=== PATIENT | female | born 1960 | race Caucasian/White ===

== ENCOUNTER 2024-12-05 10:17 | Outpatient (AMB) | payer MEDICARE, OTHER, SELFPAY ==
--- NOTE | 2024-12-05 10:23 | A.OFFPC_ITS ---
Vital Signs 12/05/24 10:32 Height 5 ft 4 in Weight 152 lb 4 oz BMI 26.1 BP 127/80 Blood Pressure Location Lt brachial Position Sitting Respiration 16 Pulse 76 Pulse Source Pulse Oximeter Temp 97.5 F Temp Source Oral Pulse Oximetry (%) 100 Oxygen Delivery Method Room Air Intake Visit Reasons: high blood pressure Intake Note: patient here for new patient visit/ HTN Transmission Specialist Required: No Is last menstrual period known: No Post menopausal: No Patient : No Allergies nitrofurantoin (From Macrobid) Allergy (Intermediate, Verified 12/05/24 10:26) Rash Medication List - Last Reviewed 12/05/24 by BOOM Powell citalopram 10 mg PO DAILY ketoconazole 2% appl topical BID Tobacco use date assessed: 12/05/24 Fall risk assessment: No Falls in past year Last assessed Fall Risk: 12/05/24 Dental Screening Dental Screen Date: 12/05/24 Did you have a dental visit in the last 12 months?: Yes Did you have a dental problem in the last 6 months where you did not have access to dental care?: No Was dental information given to patient?: Patient has dentist HPI HPI Comments History of Present Illness Details Jing 64 y/o F with chronic insomnia, fibromya lgia, hiatal hernia w/ GERD, HLD, Herpes, IBS, Atrophic vaginitis, BPPV SurgHx: R hip replacement FHx: Dad DE HTN, Bro bladder ca HLD, PGM stroke SocHx: friends w/ Olivia Potter RADIOLOGIC TECHNOLOGIST CHIEF; Dtr Ulices from [facility] Speech and Hearing Health Maintenance: See scanned preventative medicine assessment with personalized health plan and screening schedule. Colon: Mammo DEXA PAP Vaccines: All needed Flu 12/05/24, Tdap 12/05/24, Recommend Shingles @ Pharmacy AAA screen EKG: [place] of Care: [facility] wears glasses Here today as a new patient: [facility] records reviewed Uses CBD honey to help insomnia. HLD labs have increased over the years. Declined statin in the past. Rosuvastatin was recommended by previous PCP. WOnders about reaction w/ CBD. Started [place]a Bergamot & Red yeast rice liquid x 30 days. Using a cardiac health manisha for meals. Kyrgyz, loves to cook. Last labs 09/2024. Plan to cont and repeat labs in Jan/Feb Had BPPV out of no where; assoc w/ n/v Ended up at Urgent care who sent to ED for eval and tx Had EKG, CXR, CT scan of head, UA, Labs Told everything was fine (Candice, i dont have these records) She did fu with previous PCP who did not recommend MRI. I agree w/ this. Sounds like BPPV. Which has resolved since. Has meclizine on hand; Has done Vestibular PT in the past. Wanted to review her EKG done at this visit, which was done. NSR. HAs completed cardiac testing in the past and normal For her insomnia has had sleep study in the past. Poor readings as she didnt sleep during the exam. Dx with Alert resistance and paradoxical insomnia Currently wakes about 2 times; happy with CBD Exam Awake alert NAD PERRLA RRR LS CTAB No edema BLE, + PP Mood and affect appropriate Plan: The plan for today will be to administered influenza vaccine along with the tetanus vaccine. I would like for her to repeat her labs in 3 months to evaluate her liver enzymes as well as her cholesterol. She can continue to take this interest program on along with the red yeast rice for her cholesterol. The goal will be to have a reduction in her LDL. I would like to see her back in the office in April for her annual wellness visit and sooner if anything changes. Total time spent caring for the patient today was 45 minutes. This includes time spent before the visit reviewing the chart, time spent during the visit, and time spent after the visit on documentation, reviewing laboratory results, diagnostic imaging, medications, performing a medically necessary evaluation, counseling on diagnoses, care coordination, ordering appropriate tests, ordering appropriate medications, review of tests performed by other providers, reporting test results with the patient, communication with other healthcare providers. [facility] Medical History (Updated 12/05/24 @ 11:22 by Sisi Wynne, CLINCHING MACHINE [facility]) Anxiety Eczema High cholesterol IBS (irritable bowel syndrome) Incontinence Shingles Surgical History (Updated 12/05/24 @ 10:37 by BOOM Powell) History of right hip replacement Family History (Updated 12/05/24 @ 10:42 by BOOM Powell) Paternal Grandfather Alcohol abuse Cardiovascular disease Father High blood pressure High cholesterol Cardiovascular disease Brother High cholesterol Maternal Grandmother No problems noted. Paternal Grandmother Lung cancer Social History (Updated 12/05/24 @ 10:30 by BOOM Powell) Housing: Condominium Patient Tobacco Use Status: Never used Tobacco e-Cigarette/Vaping Use: Never Used Second Hand Smoke Exposure: No Use of substances other than those prescribed or required for medical reasons: Yes Substance Use Type Other:: CBC to sleep Substance Use Frequency: Daily Patient : No service: No Current occupational status: retired Current occupational exposures/hazards: No Cognitive needs: No Hearing needs: No Vision needs: Yes Questionnaire PHQ-9 Over the last 2 weeks, how often have you been bothered by any of the following problems? 1. Little interest or pleasure in doing things: not at all 2. Feeling down, depressed, or hopeless: not at all 3. Trouble falling or staying asleep, or sleeping too much: several days 4. Feeling tired or having little energy: not at all 5. Poor appetite or overeating: not at all 6. Feeling bad about yourself - or that you are a failure or have let yourself or your family down: not at all 7. Trouble concentrating on things, such as reading the newspaper or watching television: not at all 8. Moving or speaking so slowly that other people could have noticed. Or the opposite - being so fidgety or restless that you have been moving around a lot more than usual: not at all 9. Thoughts that you would be better off or of hurting yourself in some way: not at all Total score: 1 Depression Screening Interpretation: Negative Depression Screening Done: Yes 35018 - PHQ-9 Billing: Yes Source: Developed by Drs. Tye Sarabia, Vashti Bermudez, Carlos A Chatman and colleagues, with an educational clinton from [employer]. Thrive Questionnaire Date Thrive assessed: 12/05/24 I am a: Patient What is your living situation today?: I have a steady place to live Within the past 12 months, did the food you bought not last and you didn't have the money to get more?: Never true Within the past 12 months, did you worry whether your food would run out before you got money to buy more?: Never true Do you have trouble paying for medicines?: No Do you have trouble getting transportation to medical appointments?: No Do you have trouble paying your heating and electricity bill?: No Do you have trouble taking care of your child, family member or friend?: No Do you have trouble with day-to-day activities such as bathing, preparing meals, shopping, managing finances, etc.?: No Are you currently unemployed and looking for a job?: No Are you interested in more education?: No Please select the resources that you would like help with: None Currently or been in a relationship where the following occur: No concerns rep orted THRIVE Score: 0 AUDIT C Alcohol Use Questionnaire (AUDIT-C) 1. How often do you have a drink containing alcohol?: Monthly or less 2. How many drinks containing alcohol do you have on a typical day when you are drinking?: 1 or 2 3. How often do you have six or more drinks on one occasion?: Never Total Score: 1 Score Reviewed/Action Taken: Yes TASNEEM-7 AMB Questionnaire TASNEEM-7 Date TASNEEM - 7 assessed: 12/05/24 Feeling nervous, anxious, or on edge: 0 = Not at all Not being able to stop or control worryin = Not at all Worrying too much about different things: 0 = Not at all Trouble relaxin = Not at all Being so restless that it is hard to sit still: 0 = Not at all Becoming easily annoyed or irritable: 0 = Not at all Feeling afraid as if something awful might happen: 0 = Not at all Total TASNEEM-7 score (0-4 normal; 5-9 mild; 10-14 moderate; 15-21 severe): 0 Source: Developed by Drs. Tye Sarabia, Vashti Bermudez, Carlos A Chatman and colleagues, with an educational clinton from [employer]. TASNEEM-7 Assessment Billing TASNEEM-7 Assessment Tool: TASNEEM-7 Assessment 91862 Physical exam (Primary Care) Vital Signs: Last Vital Signs Temp 97.5 F 12/05/24 10:32 Pulse 76 12/05/24 10:32 Resp 16 12/05/24 10:32 BP 127/80 12/05/24 10:32 Pulse Ox 100 12/05/24 10:32 Oxygen Delivery Method Room Air 12/05/24 10:32 BMI result Body Mass Index 26.1 Tobacco/Smoking Status: Tobacco use Status Tobacco use date assessed 12/05/24 12/05/24 10:31 Patient Tobacco Use Status Never used Tobacco 12/05/24 10:31 e-Cigarette/Vaping Use Never Used 12/05/24 10:31 PHQ-9: PHQ-9 Score PHQ-9: Total score 1 12/05/24 10:31 Depression Screening Interpretation: Negative Thrive Assessment: Date of Thrive Assessment Date Thrive assessed 12/05/24 12/05/24 10:31 Currently or been in a relationship where the following occur: No concerns reported Coding Level of Care Code New Pt Level 4 (24082) Complex EM visit Add On G2211 Diagnoses Encounter to establish care Z76.89 Chronic insomnia F51.04 High cholesterol E78.00 Benign paroxysmal positional vertigo due to bilateral vestibular disorder H81.13 Laterality: bilateral History of shingles Z86.19 Influenza vaccination administered at current visit Z23 Need for Tdap vaccination Z23 Additional Codes TASNEEM-7 Assessment Billing - TASNEEM-7 Assessment Tool: TASNEEM-7 Assessment 86291 ([id number]) PHQ-9 - 05855 - PHQ-9 Billing: Yes ([id number]) Assessment & Plan Assessment & Plan (1) Encounter to establish care: Code(s): Z76.89 - Persons encountering health services in other specified circumstances (2) Chronic insomnia: Code(s): F51.04 - Psychophysiologic insomnia Category: Medical (3) High cholesterol: Code(s): E78.00 - Pure hypercholesterolemia, unspecified Category: Medical (4) BPPV (benign paroxysmal positional vertigo): Code(s): H81.10 - Benign paroxysmal vertigo, unspecified ear Category: Medical Qualifiers: Laterality: bilateral Qualified Code(s): H81.13 - Benign paroxysmal vertigo, bilateral (5) History of shingles: Code(s): Z86.19 - Personal history of other infectious and parasitic diseases Category: Medical (6) Influenza vaccination administered at current visit: Onset Date: ~12/05/24 Code(s): Z23 - Encounter for immunization Category: Medical (7) Need for Tdap vaccination: Onset Date: ~12/05/24 Code(s): Z23 - Encounter for immunization Category: Medical Plan . Orders: Orders Hemoglobin A1c Today E78.00 - Pure hypercholesterolemia, unspecified Microalbumin, Random (w Creat) Today E78.00 - Pure hypercholesterolemia, unspecified TSH reflex Free T4 Today E78.00 - Pure hypercholesterolemia, unspecified Complete Blood Count no Diff Today E78.00 - Pure hypercholesterolemia, unspecified Comprehensive Met. Panel Today E78.00 - Pure hypercholesterolemia, unspecified Lipid Panel Today E78.00 - Pure hypercholesterolemia, unspecified Vitamin B12 and Folate Today E78.00 - Pure hypercholesterolemia, unspecified Vitamin D 25-OH Total 3 Months E78.00 - Pure hypercholesterolemia, unspecified Medications: New meclizine 25 mg PO DAILY PRN 90 tabs 0RF motion sickness Patient Instructions: Walk-In Care (Urgent Care): We Make it Easy Walk-in for urgent medical issues such as: ? Seasonal Allergies ? Insect Bites ? Cough ? Diarrhea ? Acute Asthma Attacks ? Back, Knee or Joint Pain ? Ear Infection ? Fever without a Rash ? Headaches ? Nausea ? [place] Eye, Rash or Skin Irritation ? Sore Throat ? Sports Physicals ? Vomiting Most insurances are accepted. Patients do not need to be part of the [facility] to seek care at the walk-in clinic. Locations [address] [place] [address] Open Monday through Monday 8am-5pm *Hours may vary due to staffing availability. To confirm Walk-In Care hours please call. [facility] , [place] [address] ? [phone] [facility] Walk-In Care in [place] provides services to ages 18 and over. Open Monday-Monday: 7 a.m. to 5 p.m. and Monday: 9 a.m. to 3 p.m.* *Hours may vary due to staffing availability. To confirm Walk-In Care hours in [place], please call [phone]. [address] [place] [id number] ? [phone] [facility] Walk-In Care in [place] provides services to ages 12 and over. Open Monday-Monday: 8 a.m. to 5 p.m. Hours may vary due to staffing availability. To confirm Walk-In Care hours in [place], please call [phone]. LABORATORY SERVICES: [facility] Lab ? Primary Location [address] [place] [address] Monday through Monday 6:00 AM ? 5:00 PM Monday 7:00 AM ? 11:00 AM* [phone] The [facility] Lab is centrally located near the front entrance of the [facility] for easy outpatient access. Convenient parking is provided for outpatients. *Hours may vary due to staffing availability. To confirm Laboratory hours for any location, please call [phone]. Offsite Location For your convenience, we offer offsite laboratory draw stations at the following locations: [address] [place] [address] ? [facility] [address] [facility], [address] Monday through Monday 7:30 AM ? 1:00 PM* [phone] *Hours may vary due to staffing availability. To confirm Laboratory hours for any location, please call [phone]. [place] ? [address] Monday through Monday 6:00 AM ? 3:30 PM* Monday 6:30 AM ? 3 PM* [phone] *Hours may vary due to staffing availability. To confirm Laboratory hours for any location, please call [phone] [place] [address] Monday through Monday 7:30 AM ? 4:00 PM* [phone] *Hours may vary due to staffing availability. To confirm Laboratory hours for an y location, please call [phone] [place] [address] Monday through 9:00 AM ? 4:00 PM* *Hours may vary due to staffing availability. To confirm Laboratory hours for any location, please call [phone]. Appointments are not necessary. Walk-ins are welcome. Like all the departments throughout the [facility], our Lab undergoes frequent reviews to ensure the quality and accuracy of test results, and our staff takes special pride in its status as a nationally accredited facility. Patient Portal: [facility] ONE PATIENT. ONE RECORD. BETTER CARE. [facility] has a fully integrated, cutting- edge mobile electronic health information system that has revolutionized the way we care for our patients and manage our organization. This system improves communication and coordination enabling us to provide safe, higher-quality care, and an overall positive experience for staff and patients. Our first priority, as always, is to deliver the highest quality care possible. The system is running in the background supporting that priority. This portal is for all [facility] services and practices. If you are experiencing any technical difficulties with enrolling or logging into the Patient Portal please complete the [facility] Patient Portal Technical Support Form. [facility] now offers a new secure on-line interactive tool for patients to review their health information ? ?Patient Portal. This interactive web portal will enable patients and their families to take an active role in their care by providing easy, secure access to their health information via the internet. The Patient Portal provides patients with instant access to their health information, including laboratory results, medications, allergies, demographic information, visit history, and more. In addition to managing their own care, parents and health care proxies with authorized consent will appreciate the ability to access the records of those individuals for whom they provide care. Please note: if you wish to gain access (Proxy) to another patient?s portal, you will be required to come to the Medical Records Department in person at [facility]. Both the patient giving proxy access and the proxy will need to provide photo identification and complete the appropriate authorization. The Patient Portal also allows track their appointments online. The [facility] Patient Portal also saves patients time by allowing them to submit updates to their demographic and contact information prior to their visits. Portal email notifications will also alert patients to any new activity on their portal, such as test results and new appointments. In order to initially enroll in the [facility] Patient Portal, you will need to enter some required information including the following: * your [facility] Medical Record number * your personal home email address * name * date of Please note: In order to enroll in the [facility] Patient Portal, we need to have your email address on file in your electronic medical record. ?The email address needs to be specific for one person (yourself) in order for your Portal enrollment to be successful. ?You can update your email address in person with our Registration staff when you are registering for a hospital visit. ?Other avilez, you will need to come to the Health Information Management (Medical Records) Department at [facility]. ?We are open from Monday ? Monday from 7:30 a.m. ? 4:30 p.m. ?You will be required to present a photo id. Once you have successfully enrolled in the Patient Portal, you will receive a one-time user id and password for the Portal, sent to your email address. ?This will allow you to log into the Patient Portal within 99 hrs and reset your own logon id and password, and define personal security questions. ?Once your permanent login and password have been set, you can log into the [facility] Patient Portal at any time via the blue button above or from the Portal Logon button on any page of the [facility] website. [facility] encourage all of our patients to enroll in Patient Portal as it presents a valuable opportunity for patients and their families to actively participate in their care and stay healthy Welcome to [facility]. ?We look forward to working with you.
[2024-12-05 10:32] VITALS: BP 127/80; PULSE 76; RESP 16; TEMP 36.4; O2SAT 100; BMI 26.1
--- OUTSIDE RECORDS SUMMARY | 2024-12-05 12:13 | XMS_ITS | Clinical Summary ---
Author Organization [facility] Address [address] [place] [address] Phone Care Team Providers Care Underwear Trimmer Name Role Phone Mitchell Rodrigues MD Primary Care Provider [phone] Allergies Active Allergy Reactions Criticality Noted Date Comments Nitrofurantoin Monohyd/M-Cryst 10/21 Medications No known medications Active Problems No known active problems Encounters Date Type Department Care Team Description 10/21/2024 5:13 PM EDT - 10/21/2024 9:57 PM EDT Emergency [facility] Emergency [address] [place] [address] Acute nonintractable headache, unspecified headache type (Primary Dx); Dizziness Discharge Disposition: Home or Self Care from Last 3 Months Social History Tobacco Use Types Packs/Day Years Used Date Smoking Tobacco: Never Assessed Comments Unknown Sex and Gender Information Value Date Recorded Sex Assigned at Not on file Legal Sex Female 8:20 PM EST Gender Identity Not on file Sexual Orientation Not on file Obstetrics History Last Filed Vital Signs Vital Sign Reading Time Taken Comments Blood Pressure 172/70 10/21/2024 5:19 PM EDT Pulse 89 10/21/2024 5:19 PM EDT Temperature 36.2 C (97.2 F) 10/21/2024 5:19 PM EDT Respiratory Rate 16 10/21/2024 5:19 PM EDT Oxygen Saturation 99% 10/21/2024 5:19 PM EDT Inhaled Oxygen Concentration - - Weight 70.3 kg (155 lb) 10/21/2024 3:24 PM EDT Height 162.6 cm (5' 4 ) 10/21/2024 3:24 PM EDT Body Mass Index 26.61 10/21/2024 3:24 PM EDT Plan of Treatment Health Maintenance Due Date Last Done Comments Breast Cancer Screening 1959 Colorectal Cancer Screening: Colonoscopy 1959 DTaP,Tdap,and Td Vaccines (1 - Tdap) 1978 Cervical Cancer Screening: Pap Smear 02/04/1980 Pneumococcal Vaccine: 50+ Years (1 of 1 - PCV) 2009 Zoster Vaccines (1 of 2) 2009 Cholesterol Screening (Lipid Panel) 03/09/2023 Hepatitis C Screening 03/09/2023 Medicare Annual Wellness Visit 03/09/2023 Osteoporosis Screening (Bone Density Screening) 03/09/2023 Social Influencers of Health Screening 03/09/2023 Falls Risk Assessment 02/04/2024 Depression Screening 02/14/2024 COVID-19 Vaccine ( season) 2024 01/26/2021, 06/10/2020, 05/13/2020 Influenza Vaccine (#1) 2024 , 11/27/2022, 01/22/2022, Additional history exists RSV Immunization Adult Patients (1 - 1-dose 75+ series) 2034 HIB Vaccines Aged Out No longer eligi ble based on patient's age to complete this topic HPV Vaccines Aged Out No longer eligi ble based on patient's age to complete this topic Hepatitis A Vaccines Aged Out No long er eligible based on patient's age to complete this topic Hepatitis B Vaccines Aged Out No long er eligible based on patient's age to complete this topic IPV Vaccines Aged Out No longer eligi ble based on patient's age to complete this topic MMR Vaccines Aged Out No longer eligi ble based on patient's age to complete this topic Meningococcal ACWY Vaccine Aged Out N o longer eligible based on patient's age to complete this topic Meningococcal B Vaccine Aged Out No l onger eligible based on patient's age to complete this topic RSV Immunization Patients Under 20 months Aged Out No longer eligible based on patient's age to complete this topic Varicella Vaccines Aged Out No longer eligible based on patient's age to complete this topic Procedures Procedure Name Priority Date/Time Associated Diagnosis Comments ECG ANNOTATED 10/22/2024 [place] URINE CULTURE TUBE STAT 10/21/2024 8:28 PM EDT URINALYSIS WITH REFLEX MICROSCOPIC AND CULTURE STAT 10/21/2024 8:28 PM EDT URINALYSIS WITH REFLEX MICROSCOPIC AND CULTURE STAT 10/21/2024 8:28 PM EDT CULTURE URINE STAT 10/21/2024 8:28 PM EDT TROPONIN I HIGH SENSITIVITY STAT 10/21/2024 8:07 PM EDT ECG 12-LEAD STAT 10/21/2024 7:55 PM EDT XR CHEST 2 VIEWS STAT 10/21/2024 7:[address] HEAD WO CONTRAST STAT 10/21/2024 7 :40 PM EDT CBC WITH AUTO DIFFERENTIAL STAT 10/21/2024 4:42 PM EDT COMPREHENSIVE METABOLIC PANEL STAT 10/21/2024 4:42 PM EDT CBC AND DIFFERENTIAL STAT 10/21/2024 4:42 PM EDT from Last 3 Months Results * ECG-Annotated (10/22/2024) us Provider Onbase MD ECG ORDERABLES Final Result * (ABNORMAL) Urinalysis with reflex microscopic and culture (10/21/2024 8:28 PM EDT) Specific [place] Urine 1.021 1.003 - 1.030 LAB URINALYSIS - AUTOMATED METHOD 10/21/2024 9:41 PM EDT [facility] pH, Urine 5.5 5.0 - 8.0 pH LAB URINALYSIS - AUTOMATED METHOD 10/21/2024 9:41 PM EDT [facility] Leukocytes, Urine Trace(A) Negative LAB URINALYSIS - AUTOMATED METHOD 10/21/2024 9:41 PM [facility] Nitrite, Urine Negative Negative LAB URINALYSIS - AUTOMATED METHOD 10/21/2024 9:41 PM [facility] Protein, Urine Trace <=Trace mg/dL LAB URINALYSIS - AUTOMATED METHOD 10/21/2024 9:41 PM [facility] Glucose, Urine Negative Negative mg/dL LAB URINALYSIS - AUTOMATED METHOD 10/21/2024 9:41 PM [facility] Ketones, Urine Negative Negative mg/dL LAB URINALYSIS - AUTOMATED METHOD 10/21/2024 9:41 PM [facility] Urobilinogen, Urine 0.2 0.2 - 1.0 mg/dL LAB URINALYSIS - AUTOMATED METHOD 10/21/2024 9:41 PM [facility] Bilirubin, Urine Negative Negative LAB URINALYSIS - AUTOMATED METHOD 10/21/2024 9:41 PM [facility] Blood, Urine Trace(A) Negative LAB URINALYSIS - AUTOMATED METHOD 10/21/2024 9:41 PM [facility] RBC, Urine 3.5 0 - 4 /HPF LAB URINALYSIS - AUTOMATED METHOD 10/21/2024 9:41 PM [facility] WBC, Urine 2.3 0 - 4 /HPF LAB URINALYSIS - AUTOMATED METHOD 10/21/2024 9:41 PM [facility] Squamous Epithelial, Urine 15 0 - 60 /LPF LAB URINALYSIS - AUTOMATED METHOD 10/21/2024 9:41 PM [facility] Bacteria, Urine Negative Negative /HPF LAB URINALYSIS - AUTOMATED METHOD 10/21/2024 9:41 PM [facility] Hyaline Casts, Urine 0.8 0 - 3 /LPF LAB URINALYSIS - AUTOMATED METHOD 10/21/2024 9:41 PM EDT [facility] Urine Urine specimen obtained by clean catch procedure / Unknown Non-blood Collection / Unknown 10/21/2024 8:28 PM EDT 10/21/2024 9:10 PM EDT Marisol DOMINGUEZ LAB URINE ORDERABLES Fin al Result Performing Organization Address City/[facility]/ZIP Co de Phone Number [facility] [address] [place] [address], [place] [phone] * [place] urine culture tube (10/21/2024 8:28 PM EDT) Extra Tube Hold for add-ons. 10/21/2024 11:01 PM EDT [facility] Comment:Auto resulted. Urine Urine specimen obtained by clean catch procedure / Unknown Non-blood Collection / Unknown 10/21/2024 8:28 PM EDT 10/21/2024 9:10 PM EDT Marisol DOMINGUEZ LAB URINE ORDERABLES Fin al Result Performing Organization Address [facility] de Phone Number [facility] [address] [place] [address], [place] [phone] * Culture urine (10/21/2024 8:28 PM EDT) Culture, Urine 10,000-49,000 CFU/mL Mixed urogenital glo, no uropathogens present. Suggest repeat specimen if clinically indicated. 10/23/2024 7:27 AM EDT [facility] Urine Urine specimen obtained by clean catch procedure / Unknown Non-blood Collection / Unknown 10/21/2024 8:28 PM EDT 10/21/2024 9:41 PM EDT Marisol Kori Wanzer PA LAB MICROBIOLOGY - GENER AL ORDERABLES Final Result Performing Organization Address [facility]/ZIP Co de Phone Number [facility] [address] [place] [address], * Troponin I high sensitivity (10/21/2024 8:07 PM EDT) [facility] High Sensitivity Troponin I 6 <=54 ng/L LAB CHEMISTRY METHOD 10/21/2024 8:41 PM EDT [facility] Blood Venous blood specimen / Unknown Venipuncture / Unknown 10/21/2024 8:07 PM EDT 10/21/2024 8:16 PM EDT Narrative [facility] - 10/21/2024 8:41 PM EDT High levels of biotin in samples may falsely decrease hsTroponin values. Use caution when interpreting hsTroponin results in patients taking biotin who exhibit renal impairment (eGFR <60) or in patients taking more than 20 mg/day of biotin. Marisol DOMINGUEZ LAB BLOOD ORDERABLES Fin al Result Performing Organization Address [facility] de Phone Number [facility] [address] [place] [address], * ECG 12 lead (10/21/2024 7:55 PM EDT) [facility] Ventricular Rate ECG 78 BPM GEMUSE Atrial Rate 78 BPM GEMUSE P-R Interval 130 ms GEMUSE QRS Duration 94 ms GEMUSE Q-T Interval 384 ms GEMUSE QTc 437 ms GEMUSE P Wave [place] 71 degrees GEMUSE R [place] 41 degrees GEMUSE T [place] 60 degrees GEMUSE ECG Interpretation Normal sinus rhythm Nonspecific ST abnormality Abnormal ECG No previous ECGs available Confirmed by MICHAEL QUIJANO ([id number]) on 10/22/2024 8:29:56 AM GEMUSE 10/21/2024 7:55 PM EDT 10/22/2024 8:29 AM EDT us Marisol DOMINGUEZ ECG ORDERABLES Final Re sult GEMUSE * XR Chest 2 Views (10/21/2024 7:46 PM EDT) Anatomical Region Laterality Modality Body Radiographic Miranda ging 10/22/2024 9:03 AM EDT Impressions 10/22/2024 9:03 AM EDT FINDINGS/IMPRESSION: Lungs are clear. No pleural effusion or pneumothorax. Cardiac silhouette and bones are normal. -------- FINAL REPORT -------- Dictated By: MATIAS ROJAS Dictated Date: 10/22/2024 09:03 ET Assigned Physician: MATIAS ROJAS Reviewed and Electronically Signed By: MATIAS ROJAS Signed Date: 10/22/2024 09:03 ET Workstation ID: [id number] Transcribed By: Self Edit Transcribed Date: 10/22/2024 09:03 ET Narrative 10/22/2024 9:03 AM EDT XR CHEST 2 VIEWS INDICATION: Pain TECHNIQUE: XR CHEST 2 VIEWS COMPARISON: No priors available. Procedure Note Matias Rojas MD - 10/22/2024 XR CHEST 2 VIEWS INDICATION: Pain TECHNIQUE: XR CHEST 2 VIEWS COMPARISON: No priors available. IMPRESSION: FINDINGS/IMPRESSION: Lungs are clear. No pleural effusion orpneumothorax. Cardiac silhouette and bones are normal. -------- FINAL REPORT -------- Dictated By: MATIAS ROJAS Dictated Date: 10/22/2024 09:03 ET Assigned Physician: MATIAS ROJAS Reviewed and Electronically Signed By: MATIAS ROJAS Signed Date: 10/22/2024 09:03 ET Workstation ID: [id number] Transcribed By: Self Edit Transcribed Date: 10/22/2024 09:03 ET Marisol DOMINGUEZ IMG XR PROCEDURES Final Result * CT Head wo Contrast (10/21/2024 7:40 PM EDT) Anatomical Region Laterality Modality Head and Neck Computed Tomogra phy 10/21/2024 8:28 PM EDT Impressions 10/21/2024 8:28 PM EDT Impression: No acute intracranial abnormality is identified. This document has been electronically signed by: Keith Ward MD on 10/21/2024 20:28:53 Narrative 10/21/2024 8:28 PM EDT INDICATION: Dizziness, non-specific CT of the head without contrast. No comparison. Findings: No acute hemorrhage or infarct is seen. No masses are identified and there is no hydrocephalus. There is no mass-effect. Procedure Note Fabricio Ward MD - 10/21/2024 INDICATION: Dizziness, non-specific CT of the head without contrast. No comparison. Findings: No acute hemorrhage or infarct is seen. No masses are identified andthere is no hydrocephalus. There is no mass-effect. IMPRESSION: Impression: No acute intracranial abnormality is identified. This document has been electronically signed by: Keith Ward MD on 10/21/2024 20:28:[address] PROCEDURES Final Result * (ABNORMAL) CBC auto differential (10/21/2024 4:42 PM EDT) WBC 9.0 4.8 - 10.8 K/mcL LAB HEMETOLOGY METHOD 10/21/2024 4:59 PM EDT [facility] RBC 5.20(H) 3.80 - 4.80 M/mcL LAB HEMETOLOGY METHOD 10/21/2024 4:59 PM EDT [facility] Hemoglobin 13.9 11.5 - 16.0 g/dL LAB HEMETOLOGY METHOD 10/21/2024 4:59 PM EDT [facility] Hematocrit 42.2 35.0 - 47.0 % LAB HEMETOLOGY METHOD 10/21/2024 4:59 PM EDT [facility] MCV 81.8 79.0 - 98.0 FL LAB HEMETOLOGY METHOD 10/21/2024 4:59 PM [facility] MCH 26.9(L) 27.0 - 32.0 pcg LAB HEMETOLOGY METHOD 10/21/2024 4:59 PM [facility] MCHC 32.9 32.0 - 37.0 g/dL LAB HEMETOLOGY METHOD 10/21/2024 4:59 PM [facility] RDW 13.1 11.0 - 15.0 % LAB HEMETOLOGY METHOD 10/21/2024 4:59 PM [facility] Platelets 246 130 - 400 K/mcL LAB HEMETOLOGY METHOD 10/21/2024 4:59 PM [facility] MPV 8.5 7.0 - 11.0 FL LAB HEMETOLOGY METHOD 10/21/2024 4:59 PM [facility] NRBC 0.0 <1.0 % LAB HEMETOLOGY METHOD 10/21/2024 4:59 PM [facility] NRBC Absolute 0.00 <0.10 K/mcL LAB HEMETOLOGY METHOD 10/21/2024 4:59 PM [facility] Neutrophils Relative 67.6 % LAB HEMETOLOGY METHOD 10/21/2024 4:59 PM [facility] Lymphocytes Relative 23.9 % LAB HEMETOLOGY METHOD 10/21/2024 4:59 PM [facility] Monocytes Relative 6.3 % LAB HEMETOLOGY METHOD 10/21/2024 4:59 PM [facility] Eosinophils Relative 1.3 % LAB HEMETOLOGY METHOD 10/21/2024 4:59 PM [facility] Basophils Relative 0.7 % LAB HEMETOLOGY METHOD 10/21/2024 4:59 PM [facility] Immature Granulocytes Relative 0.2 % LAB HEMETOLOGY METHOD 10/21/2024 4:59 PM EDT [facility] Neutrophils Absolute 6.08 1.50 - 7.00 K/mcL LAB HEMETOLOGY METHOD 10/21/2024 4:59 PM EDT [facility] Lymphocytes Absolute 2.15 1.00 - 5.00 K/mcL LAB HEMETOLOGY METHOD 10/21/2024 4:59 PM EDT [facility] Monocytes Absolute 0.57 0.20 - 1.00 K/mcL LAB HEMETOLOGY METHOD 10/21/2024 4:59 PM EDT [facility] Eosinophils Absolute 0.12 0.00 - 0.50 K/mcL LAB HEMETOLOGY METHOD 10/21/2024 4:59 PM EDT [facility] Basophils Absolute 0.06 0.00 - 0.20 K/mcL LAB HEMETOLOGY METHOD 10/21/2024 4:59 PM EDT [facility] Immature Granulocytes Absolute 0.02 0.00 - 0.03 K/mcL LAB HEMETOLOGY METHOD 10/21/2024 4:59 PM EDT [facility] Blood Venous blood specimen / Unknown Venipuncture / Unknown 10/21/2024 4:42 PM EDT 10/21/2024 4:53 PM EDT us Fabricio Olivarez MD LAB BLOOD ORDERABLES Final Result [facility] [address] [place] [address], * Comprehensive metabolic panel (10/21/2024 4:42 PM EDT) Sodium 138 133 - 145 mmol/L LAB CHEMISTRY METHOD 10/21/2024 5:25 PM EDT [facility] Potassium 4.0 3.5 - 5.5 mmol/L LAB CHEMISTRY METHOD 10/21/2024 5:25 PM EDT [facility] Chloride 104 96 - 110 mmol/L LAB CHEMISTRY METHOD 10/21/2024 5:25 PM [facility] CO2 29 21 - 32 mmol/L LAB CHEMISTRY METHOD 10/21/2024 5:25 PM [facility] Anion Gap 5 3 - 11 LAB CHEMISTRY METHOD 10/21/2024 5:25 PM [facility] Glucose 99 70 - 100 mg/dL LAB CHEMISTRY METHOD 10/21/2024 5:25 PM [facility] BUN 18 5 - 25 mg/dL LAB CHEMISTRY METHOD 10/21/2024 5:25 PM [facility] Creatinine 0.74 0.50 - 1.10 mg/dL LAB CHEMISTRY METHOD 10/21/2024 5:25 PM [facility] eGFR 90 >=60 mL/min/1. 73m2 LAB CHEMISTRY METHOD 10/21/2024 5:25 PM [facility] Comment:Calculation based on the Chronic Kidney Disease Epidemiology Collaboration (CKD-EPI) equation refit without adjustment for race. BUN/Creatinine Ratio 24.3 LAB CHEMISTRY METHOD 10/21/2024 5:25 PM [facility] Calcium 10.2 8.5 - 10.5 mg/dL LAB CHEMISTRY METHOD 10/21/2024 5:25 PM [facility] AST (SGOT) 13 10 - 42 unit/L LAB CHEMISTRY METHOD 10/21/2024 5:25 PM [facility] ALT (SGPT) 20 10 - 60 unit/L LAB CHEMISTRY METHOD 10/21/2024 5:25 PM [facility] Alkaline Phosphatase 75 42 - 121 unit/L LAB CHEMISTRY METHOD 10/21/2024 5:25 PM [facility] Total Protein 7.1 6.0 - 8.0 g/dL LAB CHEMISTRY METHOD 10/21/2024 5:25 PM [facility] Albumin 4.0 3.2 - 5.0 g/dL LAB CHEMISTRY METHOD 10/21/2024 5:25 PM EDT [facility] Total Bilirubin 0.4 0.0 - 1.4 mg/dL LAB CHEMISTRY METHOD 10/21/2024 5:25 PM EDT [facility] Blood Venous blood specimen / Unknown Venipuncture / Unknown 10/21/2024 4:42 PM EDT 10/21/2024 4:53 PM EDT us Fabricio Olivarez MD LAB BLOOD ORDERABLES Final Result [facility] ([facility] [address] [place] [address], [place] [phone] from Last 3 Months Insurance MEDICARE [facility] Care Teams Underwear Trimmer Relationship Specialty Start Date End Date Mitchell Rodrigues MD [address] [phone] PCP - General Internal Medicine 10/21/24
== END 2024-12-05 11:35 | disposition home or self-care (01) ==
LOC: HO.HMCFM 10:17
PROVIDERS: PCP Nurse Practitioner Family; Visit Provider Nurse Practitioner Family
DX: Z76.89 Persons encountering health services in other specified circumstances (principal); F51.04 Psychophysiologic insomnia; E78.00 Pure hypercholesterolemia, unspecified; H81.13 Benign paroxysmal vertigo, bilateral; Z86.19 Personal history of other infectious and parasitic diseases; Z23 Encounter for immunization

== ENCOUNTER → 2024-12-05 10:17 | Outpatient (BNVA) | payer OTHER, MEDICARE, SELFPAY | PROVIDERS: PCP Internal Medicine; Visit Provider Nurse Practitioner Family | DX: F51.04 Psychophysiologic insomnia (principal); E78.00 Pure hypercholesterolemia, unspecified; H81.13 Benign paroxysmal vertigo, bilateral; Z86.19 Personal history of other infectious and parasitic diseases; Z76.89 Persons encountering health services in other specified circumstances; Z23 Encounter for immunization | CPT/HCPCS: 90471; 90472; 90656; 90715; 96127; 99202 ==

== ENCOUNTER 2025-01-20 08:10 | Outpatient (REF) | payer MEDICARE, OTHER, SELFPAY ==
[2025-01-20 08:49] LABS: Hematocrit 41.9 % (37.0-47.0); Hemoglobin 13.6 g/dl (12.0-16.0); Mean Corpuscular HGB Conc 32.5 g/dl (31.0-35.0); Mean Corpuscular Hemoglobin 27.4 pg (27.0-33.0); Mean Corpuscular Volume 84.3 fL (80.0-98.0); NRBC Abs Auto 0.000 X10*3/uL (0.0-0.012); NRBC Pct Auto 0.0 /100WBC (0.0-0.2); Platelet Count 242 X10*3/uL (160-400); Red Blood Count 4.97 X10*6/uL (4.20-5.50); White Blood Count 6.4 X10*3/uL (4.8-10.8)
[2025-01-20 09:21] LABS: Alanine Aminotransferase 10 U/L (0-31); Albumin Level 4.2 g/dL (3.5-5.0); Alkaline Phosphatase 73 U/L (39-117); Anion Gap 12 (12-20); Aspartate Amino Transferase 19 U/L (5-31); Blood Urea Nitrogen 22 mg/dL (9-16); Calcium 9.4 mg/dL (8.4-10.2); Carbon Dioxide 27 mmol/L (22-29); Chloride 107 mmol/L (96-108); Cholesterol 251 mg/dL (<200); Estimated Glomerular Filt Rate > 60; HDL Cholesterol 51 mg/dL (>40); Potassium 4.4 mmol/L (3.3-5.1); Sodium 142 mmol/L (135-145); Total Protein 6.8 g/dL (6.5-8.0); Triglycerides 118 mg/dL (<150)
[2025-01-20 09:23] LABS: Microalbum/Creatinine Ratio Ur 4.9 ug/mg cr (<30)
[2025-01-20 09:47] LABS: Folate 10.4 ng/mL (> or = 4.0); Vitamin B12 388 pg/mL (200-900)
== END 2025-01-20 08:11 | disposition home or self-care (01) ==
LOC: HO.LAB 08:10
PROVIDERS: PCP Nurse Practitioner Family; Visit Provider Nurse Practitioner Family
DX: Z13.1 Encounter for screening for diabetes mellitus (principal); E78.00 Pure hypercholesterolemia, unspecified
CPT/HCPCS: 36415; 80053; 80061; 82043; 82570; 82607; 82746; 83036; 84443; 85027